=== PATIENT | male | born 1965 | race Caucasian/White ===

== ENCOUNTER 2025-01-30 12:48 | Inpatient (IN) | payer BC, SELFPAY ==
[2025-01-30] VITALS (10 sets, daily range): BP systolic 130–181; BP diastolic 76–108; BMI 29.0
[2025-01-30 07:51] LABS: Hematocrit 41.7 % (39.0-52.0); Hemoglobin 14.2 g/dL (13.0-18.0); Mean Corp Hgb Conc. 34.1 g/dL (33.0-37.0); Mean Corpuscular Volume 88.3 fL (80.0-94.0); Nucleated Red Blood Cells % 0 % (-); Platelet Count 319 10^3/uL (130-400); Red Cell Dist. Width 13.2 % (11.5-14.5)
[2025-01-30] MEDS: NSS 1000 IV (08:06)
[2025-01-30 08:13] LABS: Troponin I 0.020 ng/ml
--- NOTE | 2025-01-30 08:13 | ED.GENMED ---
History of Present Illness
General
Chief Complaint: Dizziness
Source: patient, spouse and ambulance crew
Exam Limitations: none
Time Seen by Provider: 01/30/25 07:22
Nursing documentation reviewed up to this point in time: agreed with
History of Present Illness
History of Present Illness:
59-year-old male via private vehicle I did receive a call from EMS earlier this morning patient walked down to his living room felt dizzy went down to the ground had fast heart rate syncopal for a short amount of time did not remember exactly what
it happened no chest pain or shortness of breath, dizziness is improved, he refused transport came by private vehicle, he has had his ears cleaned a few weeks ago no symptoms after that, minimal headache now, no abdominal pain no diarrhea drink
socially not excess non-smoker type II diabetic on metformin Ozempic also has hypertension
Past History
Past History
ED Past Medical History: HTN and NIDDM; Negative Renal failure
Social History
Tobacco: Non-smoker
Alcohol: Occasional
Drug: None
Personal:
Living: with family
Employment: Employed
Review of Systems
Review of Systems
All Other Systems: Not applicable
Constitutional: Denies fever
EENT: Reports no symptoms
Respiratory: Reports no symptoms
Cardiac: Reports palpitations and syncope
ABD/GI: Reports no symptoms; Denies abdominal pain, nausea or vomiting
: Reports no symptoms
Musculoskeletal: Reports no symptoms
Skin: Reports no symptoms
Neurological: Reports dizzy and headache
Phy Exam
Physical Exam
Physical Exam:
Physical Exam
General: no apparent distress, not acutely ill
Neck: No jaundice no tongue bite
Heart: s1/s2 regular rate and rhythm, no murmur. equal radial pulses.
Lungs: no acute respiratory distress. clear bilaterally
Abdomen: Nontender
Neuro: alert and oriented. no focal neurological deficits normal [id number], 1-2 beat horizontal nystagmus
Skin: no rash
Psychiatric: well kept. interactive and cooperative
Extremities: no edema.
Course
Orders/Labs/Results
Orders:
Orders
01/30/25 07:25
Electrocardiogram (*1) Urgent
Reason for Study: Syncope
EKG- Treatment ONCE
01/30/25 07:42
Complete Blood Count/With Diff Urgent
Comprehensive Metabolic Panel Urgent
Troponin I Urgent
01/30/25 07:49
CT Head W/o Iv Contrast Urgent
Comment:
Reason For Exam: dizzy headache
0.9% Sodium Chloride 1000 ml [Nss] 1,000 ml IV BOLUS
Abnormal Lab Results
01/30/25
07:42
Lymphocytes % 17.3 L %
(20.5-51.1)
Eosinophils % 6.6 H %
(0-6)
Glucose 118 H mg/dl
(70-99)
AST 93 H U/L
(17-59)
ALT 86 H U/L
(0-50)
01/30/25 07:42
01/30/25 07:42
Vital Signs
Initial and Last Documented VS:
Initial Vital Signs
Temp Pulse Resp BP Pulse Ox
98.0 F 92 16 181/108 98
01/30/25 07:14 01/30/25 07:14 01/30/25 07:14 01/30/25 07:14 01/30/25 07:14
Last Documented Vital Signs
Temp Pulse Resp BP Pulse Ox
98.0 F 92 16 181/108 98
01/30/25 07:14 01/30/25 07:14 01/30/25 07:14 01/30/25 07:14 01/30/25 08:14
MDM/Problems Addressed
Differential Diagnosis Includes:
Orthostasis vasovagal electrolyte abnormality arrhythmia less likely intracerebral hemorrhage possibly very
MDM/Problems Addressed:
Dizziness palpitation
Chronic conditions affecting care: DM and HTN
Acute Exacerbation and/or Progression of Chronic Illness: DM and HTN
*Radiology
Radiology exam reviewed: radiology read reviewed
*Pulse Oximetry
SaO2: 98
Oxygen Mode of Delivery: Room air
Patient hypoxic: no
*EKG
Interpreted by ED Provider?: Yes
Interpretation: normal
Comparison EKG: no comparison EKG present
Heart Rate: 78
Rate: normal
Brooks: normal axis
Ischemia: no ischemia
*Cdl B Driver Interpretation
Rate: normal
Interpretation: normal
Heart Rate: 72
Rhythm: sinus
*Critical Care Note
Total Time (30-74mins, 75-104mins- exclusive of procedures): Not Applicable
ED Attending Note
-
Portions of this chart may have been created with voice recognition software.� Occasional wrong word or��sound alike� substitutions may have occurred due to the inherent limitations of voice recognition software.
Discharge Plan
Interventions
Interventions:
*Risk Screen - Suicide Last Done: 01/30/25 07:14
*General Assessment Last Done: 01/30/25 07:14
*Neglect/Abuse Screening Last Done: 01/30/25 07:14
*ED COVID-19 Vaccine History Last Done: 01/30/25 07:14
*ED Influenza Vaccine History Last Done: 01/30/25 07:14
ED- Neurological Assessment Last Done: 01/30/25 07:48
ED- Cardiac Assessment Last Done: 01/30/25 07:48
Discharge Date and Time
Print Language: QATARI
[2025-01-30 08:16] LABS: ALT (SGPT) 86 U/L (0-50); AST (SGOT) 93 U/L (17-59); Albumin 4.4 g/dl (3.5-5.0); Alkaline Phosphatase 60 U/L (38-126); Blood Urea Nitrogen 17 mg/dl (9-20); Calcium 9.6 mg/dl (8.4-10.2); Carbon Dioxide 25 mmol/L (22-30); Chloride 105 mmol/L (98-107); Glucose 118 mg/dl (70-99); Potassium 4.3 mmol/L (3.5-5.1); Sodium 138 mmol/L (135-145); Total Protein 7.3 g/dl (6.3-8.2); eGFR > 60.00
[2025-01-30 11:16] LABS: Troponin I 0.055 ng/ml
--- NOTE | 2025-01-30 12:12 | HPS.HSE ---
Family Physician
-
Family Physician: NOT KNOW UNKNOWN - PT DOES
Chief Complaint
-
Syncope
History of Present Illness
59-year-old male with history of hyperlipidemia, type 2 diabetes presents to the ED complaining of syncope. Patient notes that this morning he woke up, got dressed up for work and had a bowl of cereal and while he was walking from his bedroom to
his living room, he felt racing heart rate, syncopal for a short amount of time less than 30 seconds, tried to wake him up and found him a bit confused. He also felt short of breath after waking up. immediate called the EMS. He notes of
having a creatinine a few weeks ago and was asymptomatic after that. He has a history of previous catheterization in 2008 at with normal coronary arteries, normal left ventricular function. Denies history of sudden cardiac arrest in family.
In the ED, vitals are stable, elevated troponin 0.055(previous 0.20), EKG shows inverted T wave in anterolateral and inferior leads, concerns for ischemic changes. Currently he denies chest pain, shortness of breath, palpitations, edema.
Medical History
Past Medical History
Past Medical History: Reports Hypercholesterolemia and NIDDM
Past Surgical History: Reports None
Social History
Tobacco: Non-smoker
Alcohol: None
Drug: None
Personal:
Living: With Family
Employment: Employed
Family History
Family History: Not pertinent and Other (Family history of heart disease, stroke and older brother)
Allergies / Home Medications
Allergies reflects when Allergies were last updated in [employer].
Home Medications with original date entered in [employer]
Allergy/Medication List:
Allergies
Allergy/AdvReac Type Severity Reaction Status Date / Time
No Known Allergies Allergy Unverified 01/30/25 07:19
Home Medications
atorvastatin 10 mg tablet (Lipitor) 10 mg PO DAILY High Cholesterol 01/30/25
cholecalciferol (vitamin D3) 25 mcg (1,000 unit) tablet (Vitamin D3) 25 mcg PO DAILY 01/30/25
metformin 500 mg tablet 500 mg PO BID Diabetes 01/30/25
semaglutide 2 mg/dose (8 mg/3 mL) subcutaneous pen injector (Ozempic) 2 mg SC MO Diabetes 01/30/25
Review of Systems
-
History Source: Patient
A 12 point ROS was completed and negative except as noted: Yes
Physical Exam
Vital Signs
Vital Signs
Temp Pulse Resp BP Pulse Ox
98.0 F 74 18 139/88 98
01/30/25 07:14 01/30/25 09:36 01/30/25 09:36 01/30/25 09:36 01/30/25 08:14
Physical Exam
General: Comfortable and Conversant
HEENT: NormoCephalic and Anicteric
Respiratory: Clear
Cardiac: S1/S2 and Regular Rhythm
GI: Soft, Non Tender and Non Distended
Musculoskeletal: No Edema
Neuro: AO x 3
Hematologic/Lymphatic: No Lymphadenopathy
Psych: Calm
Laboratory Results
-
01/30/25 07:42
01/30/25 07:42
Laboratory Results
Total Bilirubin 0.6 mg/dl (0.2-1.3) 01/30/25 07:42
AST 93 U/L (17-59) H 01/30/25 07:42
ALT 86 U/L (0-50) H 01/30/25 07:42
Alkaline Phosphatase 60 U/L (38-126) 01/30/25 07:42
Troponin I 0.055 ng/ml H* D 01/30/25 10:36
Data Reviewed
-
CT Scan: Report Reviewed by me and Discussed with Physician
Medical Tests (Nuc Med, Echo, EKG etc): Image Personally Visualized and interpreted, Report Reviewed by me and Discussed with Physician
Lab Data: Labs Reviewed by me and Discussed with Physician
Impression/Plan
-
IMPRESSION:
Syncope
Elevated troponin
History of hyperlipidemia
History of type 2 diabetes
PLAN:
Syncope
Differential diagnosis: Acute coronary syndrome, cardiac arrhythmia, conduction abnormality, vasovagal, stroke
Troponin elevation 0.055(previous 0.20)
Asymptomatic
Inverted T waves in anterior lateral and inferior leads
Concerns for ischemia
Consult cardiology
Check orthostatic vitals
Trend troponin to peak
May need catheterization-- defer to cardiology for further evaluation
If cath is needed, IV heparin.
Check echocardiogram
Head CT unremarkable
Elevated troponin
Trend troponin to peak, Q6
History of hyperlipidemia
Continue atorvastatin
Type 2 diabetes mellitus
Hold metformin
Hold Ozempic
Sliding scale
Full code
Cholesterol-lowering diet
Lovenox
--- NOTE | 2025-01-30 12:14 | CON.CAR ---
Addendum entered and electronically signed by Julian Nguyen MD 01/30/25 16:54:
I reviewed and agree with the note by LANE and it accurately reflects our care.
I saw and evaluated the patient, and I provided the substantive portion of the medical decision making. My assessment and plan is below:
59-year-old man with obesity, dyslipidemia, diabetes, and likely undiagnosed hypertension who presents following an episode of syncope. He reports that this morning shortly after walking down the stairs, he felt very dizzy like he was going to pass
out. He was able to get himself to the ground but then lost consciousness. His found him down and he was not responsive. She thinks this lasted about a minute. When he came to he was complaining of shortness of breath and palpitations. No
chest pain. Nothing like this has ever happened in the past. Notably his brother has a history of cardiomyopathy (he thinks possibly with thick turner) with ICD and follows at [facility]. His brother was told that his condition could be genetic but
he believes that it was due to the COVID-vaccine. 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 He denies chest discomfort or shortness of breath with exertion. He is a never smoker.
Physical exam: Regular rate and rhythm, no murmurs rubs or gallops, lungs are clear, no lower extremity edema
Labs notable for troponin 0.020 -> 0.055 -> 0.057
ECG: Normal sinus rhythm, ST/T wave abnormalities
TTE 01/30/2025: LVEF 70%, moderate asymmetric septal hypertrophy (IVS 1.8 cm, LVPW 0.9 cm), moderately dilated left atrium, no VHD
Hypertrophic cardiomyopathy: New diagnosis this admission based on echo with LV septal wall thickness 18 mm, not explained by valve disease or long-standing hypertension. No evidence of LVOT obstruction. Patient's brother also likely has a history
of hypertrophic cardiomyopathy with ICD but never underwent genetic testing. Given unexplained syncope on admission, we will plan to discharge with LifeVest. Using the AHA HCM SCD calculator, his 5-year STD risk is 2.74% which is a class IIa
indication for ICD. He will eventually need outpatient cardiac MRI followed by ICD placement. Start Metoprolol succinate 50 mg daily.
Syncope: As above, concerning for arrhythmogenic syncope. LifeVest and eventual ICD.
Original Note:
Consultation
Consultation Request
Date/Time Consultation Requested: 01/30/25 114
Date/Time Consultation Performed: 01/30/251144
Requesting Provider: Dr. Bustillo
Performing Provider: Charis SHERMAN for Dr. Nguyen
Reason for Consultation: syncope
Medical History
-
Chief Complaint: syncope
History of Present Illness:
59 y/o male with dyslipidemia, obesity, and DM2. He is here for evaluation of syncope. Briefly, he was feeling fine this AM. He walked upstairs then back down to get his phone for his and then felt very dizzy and got himself to the ground and
lost consciousness. His saw him on the ground and shook him and called his name and he was looking at her shaking and disoriented. He told her he was having SOB. He also reported palpitations. He denies any CP. He was diaphoretic. At the time
of my assessment, he looks well. His EKG shows SR with ST/T abnormalities and troponin 0.055. Telemetry shows SR.
Past Medical History
Past Medical History: Hypercholesterolemia, NIDDM and Other (as above)
Social History
Tobacco: Non-Smoker
Alcohol: Occasional (4-5 drinks on the weekend)
Drug: None
Personal:
Living: With Family
Employment: Employed
Family History
Family History: Other (Brother: cardiomyopathy and pacemaker)
Allergies / Home Medications
Allergy/AdvReac Type Severity Reaction Status Date / Time
No Known Allergies Allergy Unverified 01/30/25 07:19
�Medication �Instructions �Recorded �Confirmed �Type
atorvastatin 10 mg tablet (Lipitor) 10 mg PO DAILY High Cholesterol 01/30/25 01/30/25 History
cholecalciferol (vitamin D3) 25 25 mcg PO DAILY 01/30/25 01/30/25 History
mcg (1,000 unit) tablet (Vitamin
D3)
metformin 500 mg tablet 500 mg PO BID Diabetes 01/30/25 01/30/25 History
semaglutide 2 mg/dose (8 mg/3 mL) 2 mg SC MO Diabetes 01/30/25 01/30/25 History
subcutaneous pen injector (Ozempic)
Review of Systems
-
History Source: Patient
All other systems: Negative unless noted
Respiratory: Trouble Breathing
Cardiac: Diaphoresis, Palpitations and Syncope
Physical Exam
Vital Signs
Temp Pulse Resp BP Pulse Ox
98.0 F 74 18 139/88 98
01/30/25 07:14 01/30/25 09:36 01/30/25 09:36 01/30/25 09:36 01/30/25 08:14
Lab Results
01/30/25 07:42
01/30/25 07:42
Troponin I 0.055 ng/ml H* D 01/30/25 10:36
Physical Exam
General: Well Developed, Well Nourished and No Apparent Distress
HEENT: Normocephalic and Anicteric
Respiratory: Clear and Non Labored Respirations
Cardiac: Regular Rhythm
Musculoskeletal: No Edema
Skin: Warm and Dry
Neuro: AO x 3
Psych: Calm
Impression / Plan
-
Syncope:
-short prodrome, and was able to get to ground. SOB/palps noted afterward.
-monitor telemetry
-check echo
-EKG and trop abnormal as noted. Will give Aspirin. May need ischemic evaluation- type and timing TBD.
-evaluate for other causes per primary team
Elevated BP:
-denies hx HTN
-monitor- I suspect he will need antihypertensive medication
HLD:
-on statin
-check lipids
DM2:
-on BP meds
-hold metformin
-SSI
-checking hgbA1C
Obesity:
-will benefit from weight loss moving forward
Data Reviewed
-
EKG: Tracing Personally Visualized and interpreted (SR with ST/T abnormalities- no previous for review)
CT Scan: Report Reviewed by me (no acute intracranial abnormality noted)
Medical Tests (Nuc Med, Echo etc): Other (echo is ordered)
Labs: Labs Reviewed by me
--- NOTE | 2025-01-30 12:32 | CM ---
Chart reviewed. CM met with patient and his Mica at ED bedside
Lives in a [facility] [address] with
Independent with ADLs and ambulation
Working assembler [employer]
no DME
PCP Dr. Kurtis Limon
RX plan yes
[facility]
no hx of VN nor SNF
DCP is to return home with no needs
can drive him home
CM will continue to follow up for any dcp needs
--- NOTE | 2025-01-30 13:12 | W.PN.UPDATE ---
Update Note
Progress Note Update
HPI: 59-year-old male with history of hyperlipidemia, type 2 diabetes, NIDDM; p/w syncope. He passed out very briefly in the morning and felt palpitation upon awakening. He also c/o mild SOB.
Denies to other symptoms such as chest pain etc.
A/P:
# Syncope, possible cardiac syncope/arrhythmia
# Elevated troponin, unclear etiology currently
Head CT unremarkable
EKG notes TWI in inferior and anterior-lateral leads
Troponin 0.055, cont to trend
Check echo
Monitor on tele
Card CS
Can check orthostatic VS for completeness sake
# hyperlipidemia
Continue atorvastatin
# Type 2 diabetes mellitus
Hold metformin
Hold Ozempic
Sliding scale coverage
Full code
Lovenox SQ for DVT ppx for now
[2025-01-30] MEDS: ASPIRIN 325 MG PO (13:35)
--- NOTE | 2025-01-30 13:50 | PTCARENOTE ---
01/29- Patient transferred and oriented to unit without issue. AAOX3. Teley #19- currently NSR. Denies any current needs.
[2025-01-30 15:03] LABS: Troponin I 0.060 ng/ml
[2025-01-30 15:16] LABS: Troponin I 0.057 ng/ml
--- NOTE | 2025-01-30 16:51 | CM ---
ITTO from [place] (p#[phone]) from [employer] requesting information be faxed.
Requested ECHO report, Cardio note, H+P and face sheet be faxed to [phone].
Clinicals faxed with confirmation receipt.
Updated cariology note also faxed.
[2025-01-30 17:10] LABS: Glucose - Point of Care 86 mg/dl (70-99)
[2025-01-30 20:45] LABS: Troponin I 0.053 ng/ml
[2025-01-30 20:50] LABS: Glucose - Point of Care 100 mg/dl (70-99)
[2025-01-31 02:40] LABS: Troponin I 0.043 ng/ml
[2025-01-31 02:59] VITALS: BP 124/76
[2025-01-31 06:12] LABS: Hematocrit 41.3 % (39.0-52.0); Hemoglobin 14.1 g/dL (13.0-18.0); Mean Corp Hgb Conc. 34.1 g/dL (33.0-37.0); Mean Corpuscular Volume 89.0 fL (80.0-94.0); Platelet Count 319 10^3/uL (130-400); Red Cell Dist. Width 13.2 % (11.5-14.5)
[2025-01-31 06:34] LABS: ALT (SGPT) 67 U/L (0-50); AST (SGOT) 43 U/L (17-59); Albumin 4.2 g/dl (3.5-5.0); Alkaline Phosphatase 67 U/L (38-126); Blood Urea Nitrogen 16 mg/dl (9-20); Calcium 9.8 mg/dl (8.4-10.2); Carbon Dioxide 31 mmol/L (22-30); Chloride 100 mmol/L (98-107); Estimated Creatinine Clearance 82 ml/min; Glucose 98 mg/dl (70-99); HDL Cholesterol 60 mg/dl; LDL Cholesterol, Calculated 66 mg/dl; Potassium 4.9 mmol/L (3.5-5.1); Sodium 135 mmol/L (135-145); Total Protein 6.7 g/dl (6.3-8.2); Very Low Density Lipoprotein 22 mg/dl (0-30); eGFR > 60.00
[2025-01-31 07:15] VITALS: BP 146/78
[2025-01-31 07:30] VITALS: BP 142/93; BP 146/78; BP 157/99; PULSE 62; PULSE 69; PULSE 75
[2025-01-31 08:24] LABS: Glucose - Point of Care 98 mg/dl (70-99)
[2025-01-31] MEDS: VITAMIN D3 (cholecalciferol) 25 MCG PO (08:56)
[2025-01-31] MEDS: TOPROL XL 50 MG PO (08:56)
[2025-01-31] MEDS: LIPITOR 10 MG PO (08:57)
--- NOTE | 2025-01-31 09:31 | W.PN.CD ---
Today's Communication / Plan
-
Discharge with LifeVest
I gave him a paper prescription for cardiac MRI
He will decide where he wants to follow-up. I gave him the contact information for our office.
Impression / Plan
-
59-year-old man with obesity, dyslipidemia, diabetes, and likely undiagnosed hypertension who presented with syncope, found to have new hypertrophic cardiomyopathy.
Syncope:
- Concern for arrhythmogenic syncope given short prodrome, palpitations, and new diagnosis of hypertrophic cardiomyopathy.
- No arrhythmias on telemetry here.
- Start metoprolol succinate 50 mg daily
- He will be discharged with a LifeVest. Will likely need ICD eventually.
Hypertrophic cardiomyopathy:
- New diagnosis this admission. Brother also has a history of cardiomyopathy with ICD.
- TTE 01/30/2025: LVEF 70%, moderate asymmetric septal hypertrophy (IVS 1.8 cm, LVPW 0.9 cm), moderately dilated left atrium, no VHD
- He is asymptomatic and does not have LVOT obstruction on echocardiogram
- Using the AHA HCM SCD calculator, his 5-year STD risk is 2.74% which is a class IIa indication for ICD. He will eventually need outpatient cardiac MRI followed by ICD placement. Discharge with LifeVest.
Elevated BP:
-denies hx HTN
-monitor with addition of beta-masha
HLD:
-on statin
DM2:
-on BP meds
-hold metformin
-SSI
Obesity:
-will benefit from weight loss moving forward
Subjective: Feels at baseline. No CV complaints. No recurrent presyncope or syncope.
Physical Exam
Vital Signs/Labs
Vital Signs
Temp Pulse Resp BP Pulse Ox
97.7 F 62 18 146/78 97
01/31/25 07:15 01/31/25 07:15 01/31/25 07:15 01/31/25 07:15 01/31/25 07:15
01/30/25 01/31/25 02/01/25
06:59 06:59 06:59
Actual Weight 185 lb 3.2 oz
01/31/25 05:20
01/31/25 05:20
Triglycerides 110 mg/dl (10-149) 01/31/25 05:20
LDL Cholesterol, Calc 66 mg/dl 01/31/25 05:20
VLDL Cholesterol, Calc 22 mg/dl (0-30) 01/31/25 05:20
HDL Cholesterol 60 mg/dl 01/31/25 05:20
LAB Results
01/30/25 01/30/25 01/30/25
07:42 10:36 14:35
Troponin I 0.020 0.055 H* D 0.057 H*
01/30/25 01/30/25 01/31/25
19:55 Unknown 01:51
Troponin I 0.053 H* 0.060 H* 0.043 H*
Physical Exam
Constitutional: No acute distress and Comfortable
Cardiovascular: Rhythm & rate is regular, Pedal edema is absent, S1S2 is normal and Murmur/rub/gallop absent
Respiratory: Respiratory effort normal and Lungs clear to auscul.
Neuro/Psych: AO x 3
Data Reviewed
-
Date of Service: January 31, 2025
Medical Decision Making: Reviewed Test Results, Test Interpretation and Review of Case with other Provider
EKG: Tracing Personally Visualized and interpreted
Echo: Report Reviewed by me
Labs: Labs Reviewed by me
--- NOTE | 2025-01-31 10:26 | W.PN.HOSP.TC ---
Today's Communication/Plan
-
see A/P
Assessment / Plan
Assessment / Plan
HPI: 59-year-old male with history of hyperlipidemia, type 2 diabetes, NIDDM; p/w syncope. He passed out very briefly in the morning and felt palpitation upon awakening. He also c/o mild SOB.
Denies to other symptoms such as chest pain etc.
A/P:
# Syncope, possible cardiac syncope with new diagnosis of Hypertrophic cardiomyopathy
# Non-NH troponin elevation
Head CT unremarkable
Echo showed Moderate asymmetric septal hypertrophy without evidence of LVOT obstruction, EF 70%.
d/w Card, for life vest fitting and pt can follow up card outpatient
added Toprol 50 mg daily, cont
# hyperlipidemia
Continue atorvastatin
# Type 2 diabetes mellitus
resume home metformin and Ozempic after DC
Sliding scale coverage
Full code
Lovenox SQ for DVT ppx for now
DW Forensic Nurse
DW RN
DW at bedside
Anticipated Discharge: Today
Subjective/Interval History
-
Date of Service: January 31, 2025
Objective Data
-
Labs:
Laboratory Results
01/31/25
05:20
WBC 8.9
Hgb 14.1
Hct 41.3
Plt Count 319
Sodium 135
Potassium 4.9
Chloride 100
Carbon Dioxide 31 H
BUN 16
Creatinine 0.9
Glucose 98
Calcium 9.8
Total Bilirubin 0.7
AST 43
ALT 67 H
Alkaline Phosphatase 67
Vital Signs:
Vital Signs
Temp Pulse Resp BP Pulse Ox
36.5 C 62 18 146/78 97
01/31/25 07:15 01/31/25 07:15 01/31/25 07:15 01/31/25 07:15 01/31/25 07:15
I&O
01/30/25 01/31/25 02/01/25
06:59 06:59 06:59
Intake Total 960 / 960
Balance 960 / 960
Review of Systems
-
History Source: Patient
All other systems: Reviewed and negative
Physical Exam
-
General: Well Developed, Well Nourished, No Apparent Distress, Comfortable and Conversant; Negative Respiratory Distress
HEENT: Normocephalic, Atraumatic, Nose Appears Normal and Ears Appear Normal; Negative Oxygen
Respiratory: Clear to Auscultation and Non Labored Respirations; Negative Accessory Resp Muscle Use
Cardiac: Regular Rhythm and S1/S2
GI: Soft, Nontender, Nondistended and Normal Bowel Sounds
Skin: Warm and Dry
Neuro: Awake, Alert, Oriented and AO x 3
Psych: Calm and Intact Judgement/Insight
Data Reviewed
-
Medical Tests (Nuc Med, Echo etc): Report Reviewed by me (echo), Discussed with Physician, Discussed with Patient and Discussed with Family
Labs: Labs Reviewed by me
[2025-01-31 11:26] VITALS: BP 145/90
[2025-01-31 11:45] LABS: Glucose - Point of Care 106 mg/dl (70-99)
[2025-01-31 12:13] LABS: Glycohemoglobin (HgbA1c) 5.8 % (4.0-5.9)
--- NOTE | 2025-01-31 13:02 | W.DCSUMMARY ---
Discharge Summary
Discharge Data
Date of Admission: 01/30/25
Date of Discharge: 01/31/25
Total time spent discharging patient (in min): 40
-
Pending Results: No
Hospital Course
Principal Diagnosis:
Syncope, possible cardiac syncope with new diagnosis of hypertrophic cardiomyopathy (non-obstructive)
Non-MS troponin elevation
Chronic Diagnoses:�
Hyperlipidemia
Type 2 diabetes mellitus
Consultations:�
None
Procedures:�
None
Clinical course:�
This is a 59-year-old male with past medical history as stated above, who presented with syncope.
Problem 1:
Syncope, possible cardiac syncope with new diagnosis of Hypertrophic cardiomyopathy
His head CT was unremarkable.
His Echo showed moderate asymmetric septal hypertrophy without evidence of LVOT obstruction, and EF at 70%.
LifeVest was fitted while in the hospital, and the patient has been informed to follow-up with cardiology outpatient for eventual ICD placement.
Toprol 50 mg daily was added this admission which the patient can continue following discharge.
As for the rest of his medical problems, they were stable during his hospital stay.
Discharge Plan
-
Patient Disposition: Home (Routine Discharge)
Discharge Diagnosis/Procedures: Syncope, possible cardiac syncope with new diagnosis of Hypertrophic cardiomyopathy (Echo showed Moderate asymmetric septal hypertrophy without evidence of LVOT obstruction, EF 70%)
Condition: Good
Diet: As tolerated
Activity: As tolerated
Driving Restrictions: As prior to admission
Referrals:
UNKNOWN - PT DOES,NOT KNOW [Family Provider] - in less than 1 week
Additional Discharge Medication Instructions: You were started with Toprol 50 mg daily, continue until further directed by your collet maker
Prescriptions:
New
metoprolol succinate 50 mg Tablet Extended Release 24 Hr
50 mg PO DAILY Qty: 30 0RF
Continued
Ozempic 2 mg/dose (8 mg/3 mL) Pen Injector
2 mg SC MO
metformin 500 mg Tablet
500 mg PO BID
atorvastatin [Lipitor] 10 mg Tablet
10 mg PO DAILY
cholecalciferol (vitamin D3) [Vitamin D3] 25 mcg (1,000 unit) Tablet
25 mcg PO DAILY
Discharge Orders:
Discharge Patient (As Directed); Ordered 01/31/25
Ordered By: Karly Núñez
Discharge Date and Time
Print Language: [employer] [place]
== END 2025-01-31 14:29 | disposition home or self-care (01) | DRG 316 ==
LOC: 4 WEST ACU 12:48
PROVIDERS: Nurse Practitioner; Student in an Organized Health Care Education/Training Program; ADMITTING PHYSICIAN Internal Medicine; CONSULT PHYSICIAN Student in an Organized Health Care Education/Training Program; EMERGENCY PHYSICIAN Emergency Medicine
DX: I42.2 Other hypertrophic cardiomyopathy (principal); I10 Essential (primary) hypertension; E11.9 Type 2 diabetes mellitus without complications; E66.9 Obesity, unspecified; Z68.29 Body mass index [BMI] 29.0-29.9, adult; E78.5 Hyperlipidemia, unspecified; R03.0 Elevated blood-pressure reading, without diagnosis of hypertension; R79.89 Other specified abnormal findings of blood chemistry; Z79.899 Other long term (current) drug therapy; Z79.84 Long term (current) use of oral hypoglycemic drugs
CPT/HCPCS: 70450; 80053; 80061; 82248; 82962; 83036; 84484; 85025; 85027; 93005; 93306; 96360; 99285

== ENCOUNTER → 2025-02-18 08:28 | Outpatient (REF) | payer BC, SELFPAY | LOC: MRI 08:28 | PROVIDERS: ATTENDING PHYSICIAN Student in an Organized Health Care Education/Training Program; FAMILY PHYSICIAN Internal Medicine | DX: I42.2 Other hypertrophic cardiomyopathy (principal) | CPT/HCPCS: 75561; 75565; A9575; A9585 ==